=== PATIENT | female | born 1995 | race Caucasian/White ===

== ENCOUNTER 2019-09-20 17:17 | Emergency (ER) | payer BC, SELFPAY ==
[2019-09-20 17:30] VITALS: BP 148/96; PULSE 86; RESP 18; TEMP 36.4; O2SAT 99
--- NOTE | 2019-09-20 17:32 | ED.FEMALEGU ---
HPI - Female Genitourinary General Chief complaint: Urogenital-Female Stated complaint: bladder pain/pain with urination Time Seen by Provider: 09/20/19 17:32 Source: patient and RN notes reviewed History of Present Illness HPI Narrative: Patient is a 23-year-old female presents the urgent care with complaints of a possible UTI. Patient states that she has had urinary frequency since Thursday. Patient has not used anything [id number] for her symptoms. Patient states that she was diagnosed with a UTI in August and did follow-up with her PCP who recommended that she get an ultrasound. Patient did not go through with the ultrasound because she did not feel like she needed it and symptoms improved . Patient has not followed up with her physician since these new symptoms started on Thursday. Patient states that her worry is that she was in the emergency room and admitted due to a bad urinary tract infection in the past . Patient is requesting the urine be cultured. Denies of any fever, chills, nausea, vomiting, abdominal pain. No other acute complaints. No acute distress noted. Patient read the plan of care. Pertinent past history: spinal cord injury Related Data Home Medications Medication Instructions Recorded Confirmed Dialyvite Vitamin D 09/20/19 cranberry 500 mg PO BID 09/20/19 09/20/19 [id number] K tablet PO 09/20/19 [Adults Multivitamin] vitamin B complex tablet PO 09/20/19 Allergies Allergy/AdvReac Type Severity Reaction Status Date / Time ciprofloxacin [From Cipro] AdvReac Swelling Verified 09/20/19 17:38 sulfamethoxazole AdvReac Swelling Verified 09/20/19 17:39 [From Bactrim] trimethoprim [From Bactrim] AdvReac Swelling Verified 09/20/19 17:39 supprex Allergy Severe Other Uncoded 11/09/17 18:08 Review of Systems Review of Systems: Narrative: CONSTITUTIONAL: Denies fever, chills, or sweats. EYES: Denies visual changes, redness, or discharge. ENT: Denies rhinorrhea, congestion, sore throat, or otalgia. CARDIOVASCULAR: Denies chest pain, palpitations, or edema. RESPIRATORY: Denies cough or dyspnea. GASTROINTESTINAL: Denies abdominal pain, nausea, vomiting, or diarrhea. GENITOURINARY: Reports of urinary frequency SKIN: Denies rash or itching. MUSCULOSKELETAL: Denies back pain, joint pain, or myalgia. NEUROLOGIC: Denies headache, numbness, or weakness. All other systems reviewed are negative, except as documented in HPI. PMFSH Comments At the time of my signature, I reviewed and agree with the nursing past medical, surgical, social, and family history. There is no relevant family history pertinent to the patient complaint. Exam Narrative: Exam Narrative: GENERAL: This is a well-nourished, well-developed patient, in no apparent distress. HEAD: normocephalic, atraumatic. EYES: PERRL. Sclera clear/white. Vision is grossly intact. EARS: External ears normal NOSE: External nose normal with no obvious nasal discharge THROAT: Mucous membranes moist NECK: Neck supple GASTROINTESTINAL: Abdomen soft, mild suprapubic tenderness, nondistended. SKIN: warm, intact with no suspicious lesions or rash, good texture and turgor. NEURO: awake, alert, and oriented to person, place and time. There were no obvious focal neurologic abnormalities. EXTREMITIES: No clubbing, cyanosis, or edema. BACK: Negative bilateral CVA tenderness Course Vital Signs Vital signs: Vital Signs Temperature 97.5 F L 09/20/19 17:30 Pulse Rate 86 09/20/19 17:30 Respiratory Rate 18 09/20/19 17:30 Blood Pressure 148/96 H 09/20/19 17:30 Pulse Oximetry 99 09/20/19 17:30 Temperature 97.5 F L 09/20/19 17:30 Pulse Rate 86 09/20/19 17:30 Respiratory Rate 18 09/20/19 17:30 Blood Pressure 148/96 H 09/20/19 17:30 Pulse Oximetry 99 09/20/19 17:30 Reviewed?patient is informed that they may have pre-hypertension or hypertension based on a blood pressure reading in the department. I recommend the pat
== END 2019-09-20 17:50 | disposition home or self-care (01) ==
PROVIDERS: Emergency Provider Nurse Practitioner Family; PCP Family Medicine
DX: R35.0 Frequency of micturition (principal)
CPT/HCPCS: 81003; 87086; 87088; 99213; G0463

== ENCOUNTER 2022-07-06 10:32 | Emergency (ER) | payer OTHER, SELFPAY ==
[2022-07-06 11:08] VITALS: BP 128/81; PULSE 111; RESP 14; TEMP 36.7; O2SAT 100
--- NOTE | 2022-07-06 11:47 | ED.GENADULT ---
HPI - General Adult General Chief complaint: Upper Respiratory Infection Stated complaint: ear pressure,cough,throat hurts Source: patient Mode of arrival: ambulatory Limitations: no limitations History of Present Illness HPI narrative: Patient presents for evaluation of sick symptoms for last 5 days. Symptoms include sore throat, muffled hearing bilaterally, cervical lymphadenopathy, sinus congestion, green drainage from the nares and cough. No fever, chills, nausea, vomiting, diarrhea, shortness of breath. No underlying medical problems. History of tonsillectomy. Daughter is here being evaluated for similar symptoms. She does not smoke. Related Data Home Medications Medication Instructions Recorded Confirmed Dialyvite Vitamin D 09/20/19 cranberry 500 mg capsule 500 mg PO BID 09/20/19 09/20/19 multivit with minerals-iron 18 tablet PO 09/20/19 mg-folic ac 400 mcg-vit K 25 mcg tablet (Adults Multivitamin) vitamin B complex tablet PO 09/20/19 Allergies Allergy/AdvReac Type Severity Reaction Status Date / Time cefaclor Allergy Unknown Verified 07/06/22 11:18 ciprofloxacin [From Cipro] AdvReac Swelling Verified 09/20/19 17:38 sulfamethoxazole AdvReac Swelling Verified 09/20/19 17:39 [From Bactrim] trimethoprim [From Bactrim] AdvReac Swelling Verified 09/20/19 17:39 supprex Allergy Severe Other Uncoded 09/20/19 17:57 Review of Systems Review of Systems: CONSTITUTIONAL: Denies fever, chills, or sweats. EYES: Denies visual changes, redness, or discharge. ENT: Reports sore throat, sinus congestion, green drainage from the nares, muffled hearing bilaterally CARDIOVASCULAR: Denies chest pain, palpitations, or edema. RESPIRATORY: Reports cough. Denies shortness of breath. GASTROINTESTINAL: Denies abdominal pain, nausea, vomiting, or diarrhea. GENITOURINARY: Denies dysuria or hematuria. SKIN: Denies rash or itching. MUSCULOSKELETAL: Denies back pain, joint pain, or myalgia. NEUROLOGIC: Denies headache, numbness, dizziness, or weakness. PSYCHIATRIC: Denies anxiety or depression. [facility] Past Medical History Medical History (Updated 07/06/22 @ 12:14 by Luis Youssef, [employer], ) No pertinent past medical history Surgical History Surgical History History of tonsillectomy Family History Family History Mother Family history non-contributory Social History Social History (Updated 07/06/22 @ 11:51 by Luis Youssef [facility], ) Smoking status: Never smoker Substance use: never Gender identity (if verbalized by the patient): Female Sexual Orientation (if Verbalized by the Patient): Straight or Heterosexual Spiritual care concerns: No Exam Narrative: GENERAL: Well-appearing, well-nourished, and in no acute distress. HEAD: Normocephalic, atraumatic. EYES: PERRLA and EOMI. ENT: Nares clear, no rhinorrhea or epistaxis. Mucous membranes moist. Posterior pharyngeal erythema without exudate. Uvula is midline. Bilateral TMs pearly castro nonbulging NECK: Supple. No adenopathy or masses. No carotid bruits or JVD CHEST: Clear to auscultation. No respiratory distress. No wheezes rales or rhonchi HEART: Regular rate and rhythm. No murmur heard. Normal peripheral pulses. ABDOMEN: Soft, nontender, nondistended, normal active bowel sounds. EXTREMITIES: Normal range of motion. No edema. SKIN: Warm, dry, no rash. NEURO: No focal deficits. Alert and oriented x3. PSYCH: Normal mood and affect. Course Course Emergency Course: This is a 26-year-old female who presented for evaluation of sick symptoms. Strep here was negative. Daughter tested positive for RSV. Exam is consistent with a viral URI. [id number] agents for symptom management. Increase hydration. Follow up with primary provider. Go to the ER for difficulty breathing or swallowing. Patient in agreement with
== END 2022-07-06 12:23 | disposition home or self-care (01) ==
PROVIDERS: Emergency Provider Nurse Practitioner
DX: J06.9 Acute upper respiratory infection, unspecified (principal)
CPT/HCPCS: 87081; 87880; 99213; G0463